=== PATIENT | female | born 1970 | race Caucasian/White ===

== ENCOUNTER 2023-11-03 01:35 | Outpatient (CLI) | payer OTHER, SELFPAY ==
--- NOTE | 2023-11-03 07:30 | DI.MAMMO_ITS ---
Exam(s) MAMMO SCREENING EXAM: MAMMO SCREENING CLINICAL HISTORY: screening,z12.39 TECHNIQUE: Mammograms were interpreted according to the usual protocol including computer analysis w ith CAD system, tomosynthesis and C-view imaging. COMPARISON: SCREENING AURELIO MAMMO W/CAD DIGI from 03/23/2013 DIAGNOSTIC RIGHT MAMMO DIGITAL from 04/01/2013 FINDINGS: The breasts are composed of scattered fibroglandular densities, Breast Density category B. No suspicious masses or suspicious microcalcifications are seen. No skin thickening or abnormal axillary lymph nodes are seen. There has been no significant change from prior exams. IMPRESSION: BI-RADS Category 1, Negative mammogram Yearly screening mammography is recommended. Breast Density - Category B, scattered fibroglandular densities. A negative radiographic report should not delay biopsy if a dominant or clinically suspicious mass is present. Up to ten percent of cancers are not identified on mammography. A negative report may reinforce clinical impression. Adenosis and dense breasts may obscure an underlying neoplasm. False positive reports average 6 to 10%. Patient will receive a letter notifying them of these results.
== END 2023-11-03 01:55 ==
LOC: DI 01:35
PROVIDERS: PCP Nurse Practitioner Family; Visit Provider Nurse Practitioner Family
DX: Z12.31 Encounter for screening mammogram for malignant neoplasm of breast (principal)
CPT/HCPCS: 77063; 77067

== ENCOUNTER 2023-11-04 09:40 | Outpatient (REF) | payer OTHER, SELFPAY ==
--- NOTE | 2023-11-04 09:15 | PAPFT_PTH ---
PATIENT: Dodie Vences LOC: [facility] U#:[id number] AGE/SX: 53/F ROOM: RE11/04/[address]: Sue Chadwick NP : 1970 BED: DIS: 11/04/2023 SPEC #: [id number] RECD: 11/04/23 13:16 STATUS: RICHY RESee #: [id number] ELLEN: 11/04/23 09:[address]: Sue Chadwick NP DEPT: COUNTS INCLUDE 234 BEDS AT THE [facility] Cytology RECD BY: Alyson Curry ENTERED: 11/04/23 13:17 SP TYPE: PAPFT OTHR DR: Elly Phillips APRN Tissues: 1 - CX/ENDOCX FOR PAP SMEARS Procedures: PAP THIN PREP/UVM Screening HPV DNA PROBE Comments: [id number] (HPV 16 & 18/45)
== END 2023-11-04 09:41 | disposition home or self-care (01) ==
LOC: LBN 09:40
PROVIDERS: PCP Nurse Practitioner Family; Visit Provider Nurse Practitioner Women's Health
DX: Z12.4 Encounter for screening for malignant neoplasm of cervix (principal)
CPT/HCPCS: 88142; 87624

== ENCOUNTER 2023-12-17 01:54 | Outpatient (CLI) | payer OTHER, SELFPAY ==
[2023-12-17 11:10] LABS: Calculated LDL 167 mg/dL (<100); Cholesterol 253 mg/dL (<200); HDL Cholesterol 78 mg/dL (40-60); Triglyceride 44 mg/dL (<150)
[2023-12-17 11:46] LABS: Hemoglobin A1C 5.9 % (<5.7)
== END 2023-12-17 01:55 | disposition home or self-care (01) ==
LOC: LBO 01:54
PROVIDERS: PCP Nurse Practitioner Family; Referring Provider Nurse Practitioner Family; Visit Provider Nurse Practitioner Family
DX: Z00.00 Encounter for general adult medical examination without abnormal findings (principal)
CPT/HCPCS: 36415; 80061; 83036

== ENCOUNTER 2024-06-10 08:49 | Day surgery (SDC) | payer OTHER, SELFPAY ==
[2024-06-10 09:23] VITALS: BP 181/96; PULSE 97; RESP 20; TEMP 36.7; O2SAT 97
--- NOTE | 2024-06-10 09:51 | W.ANESPRE ---
General Info Date of Service Date Performed: 06/10/24 Height: 5 ft 4 in Weight: 85.8 kg Body Mass Index (BMI): 32.4 Surgical Procedure: Operation Date: 06/10/24 09:50 Proposed Procedure Side Surgeon p Colonoscopy Shari Wright MD Meds Allergies and Home Medications Allergies Allergy/AdvReac Type Severity Reaction Status Date / Time No Known Allergies Allergy Verified 06/10/24 09:22 Home Medication ?Medication ?Instructions ?Recorded [id number] 18 mg-FA 400 1 tab PO DAILY 09/24/23 mcg-calcium 500 mg-vit K 50 mcg tablet (Women's Multivitamin) nystatin 100,000 unit/gram topical 1 applic topical BID #30 grams 11/04/23 cream bisacodyl 5 mg tablet,delayed 5 mg PO ONCE colonscopy bowel prep 06/02/24 release (Dulcolax (bisacodyl)) #4 tabs polyethylene glycol 3350 17 238 g PO ONCE colonoscopy prep 06/02/24 gram/dose oral powder #238 grams Current Visit Medications: Current Medications Generic Name Dose Route Start Last Admin Trade Name Freq PRN Reason Stop Dose Admin Ringer's Solution 1,000 mls @ 80 mls/hr 06/10/24 06:00 IV 06/10/24 23:59 INFUSION JACQUE IV Miscellaneous Supplies 1 each 06/10/24 06:00 Iv Access IV 06/10/24 23:59 DIRECTED JACQUE Sodium Chloride 0 ml 06/10/24 06:00 Normal Saline Flush 10 Ml Syr IV 06/10/24 23:59 PRN PRN Sodium Chloride 0 ml 06/10/24 06:00 Normal Saline 10 Ml Vial IJ 06/10/24 23:59 DIRECTED PRN Sterile Water 0 ml 06/10/24 06:00 Water,Injection,Sterile 10 Ml Vial IJ 06/10/24 23:59 DIRECTED PRN PFSH Active Problems Active Problems: Problem Status Onset Code Normal hysteroscopy Acute Z01.89 Flaky scalp Acute L21.0 Family history of malignant neoplasm of colon in father Acute Z80.0 Intertrigo Acute L30.4 IUD surveillance Acute Z30.431 Preventative health care Acute Z00.00 Screening for breast cancer Acute Z12.39 Medical History Medical History No pertinent past medical history Surgical History Surgical History No pertinent past surgical history Tobacco Smoking/Tobacco Use Status: Never Passive smoking exposure: No Alcohol Alcohol Intake: current Alcohol intake frequency: 0-2 drinks per day Substance Use Substance use: Never Substance use type: does not use Counseling provided: none Vital Signs and Lab Results Vital Signs Most Recent Vital Signs in EMR: Most Recent Vital Signs Temp Pulse Resp BP Pulse Ox 36.7 C 97 H 20 181/96 H 97 06/10/24 09:23 06/10/24 09:23 06/10/24 09:23 06/10/24 09:23 06/10/24 09:23 Lab Results Blood Type / Crossmatch: No Data to Display Complete Blood Count: No Data to Display Complete Metabolic Panel: No Data to Display Liver Function Panel: No Data to Display Coagulation Panel: No Data to Display Cardiac Panel: No Data to Display Arterial Blood Gas: No Data to Display Venous Blood Gas: No Data to Display Pancreas Panel: No Data to Display Thyroid Panel: No Data to Display Infectious Disease: No Data to Display Blood Cultures: No Data to Display Toxicology Panel: No Data to Display Panel: No Data to Display Anesthesia Assessment and Plan Anesthesia History Personal History: No History of General Anesthesia Family History: No Family History of Anesthesia Complications Exercise Tolerance Exercise Tolerance: Metabolic Equivalents>4 Pertinent Negatives Pertinent Negatives: No Symptoms of GERD, No Major Cardiovascular Symptoms or Complaints, No Major Pulmonary Symptoms or Complaints and No History of CVA/TIA Cardiac & Pulmonary Exam Cardiac Exam: Normal S1/S2 Heart Sounds Pulmonary Exam: Clear Bilateral Breath Sounds Implantable Cardiac Device Does patient have a Pacemaker or an ICD?: No Airway Exam Known Difficult Airway: No Mallampati Class: 3 Mouth Opening: Normal (> 3cm) Thyromental Distance: Greater than 3 cm Neck Range of Motion: Full ROM Neck Circumference: Normal Teeth Condition: Generalized Poor Dentition (none loose per patient. right front tooth chipped) ASA Classification ASA Score: ASA 2 Emergency Case?: No NPO Status NPO Status: NPO Clears >2 hours, Solids >8 hours Status Status: Negative HCG Anesthesia Plan Resuscitation Status: Full Code Anesthesia Technique: General Anesthesia Airway Planned: Natural Airway Monitors Used: Standard Monitors
[2024-06-10] MEDS: Lactated Ringers 1,000 ML 80 ML IV (10:17)
[2024-06-10 10:25] VITALS: BMI 32.4
--- NOTE | 2024-06-10 11:00 | W.COLOREPORT ---
Date of service: 06/10/24 Time of Service: 11:00 Colonoscopy Report Date of procedure: 06/10/24 Pre-op diagnosis general: Family history of colorectal cancer in a first-degree relative Post-op diagnosis procedure note: other (Circumferential dilated internal hemorrhoids and external anal polyp she is to go to the) Procedure: colonoscopy Surgeon: Shari Wright Anesthesia Type: General:No Airway Estimated blood loss (mL): 0 Complications: None Disposition: same day Indications: Patient with a family history of colon cancer in her father diagnosed in his 60s. Findings: normal colon, excellent prep and no polyps Retroflexion exam reveals circumferential dilated internal hemorrhoidal veins. Procedure Description: After the risks, benefits, and alternatives of the procedure were thoroughly explained, informed consent was obtained. The Patient is brought to the procedure room and time out is performed confirming patient identity, nature of procedure. Patient is connected to monitoring devices including O2 sat, EKG and given supplemental oxygen per anesthesia. After appropriate anesthetic is obtained, patient is placed in the left lateral decubitus position and digital rectal exam is performed. Findings include a 1.5 cm protruding anal polyp. The polyp is soft and supple, appears subtly verrucas but non cancerous . The colonoscope is inserted through the anus and guided under direct vision to the proximal colon as confirmed by presence of the appendiceal orifice and the ileocecal valve. The colonoscope is then slowly withdrawn , inspecting all aspects of the mucosa completely. Findings and any associated intervention, are noted above. The colonoscope was then completely withdrawn from the patient and the procedure terminated. The patient tolerated the procedure well and is transferred back to the Day surgery unit in stable condition.
[2024-06-10 11:04] VITALS: BP 142/88; PULSE 87; RESP 16; TEMP 36.1; O2SAT 94
--- NOTE | 2024-06-10 11:06 | W.PM.DSUDISC ---
Date of service: 06/10/24 Discharge Plan Disposition Patient Disposition: Home Discharge Details Attending Provider: Shari Wright Primary Care Provider: Elly Phillips Home Meds and New Rx's Prescriptions: No Action nystatin 100,000 unit/gram cream 1 applic topical BID Qty: 30 1RF Women's Multivitamin 18 mg-400 mcg- 500 mg-50 mcg tablet 1 tab PO DAILY polyethylene glycol 3350 17 gram/dose powder 238 g PO ONCE Qty: 238 0RF Rx Instructions: take per colonoscopy instructions bisacodyl [Dulcolax (bisacodyl)] 5 mg tablet,delayed release (DR/EC) 5 mg PO ONCE Qty: 4 0RF Rx Instructions: take per colonoscopy instructions Discharge Instructions Additional Instructions: You have no polys, but due to your family history of colon cancer, I do recommend that you have a repeat screening in 10 years You have dilated internal hemorrhoids. These do not need to be treated unless you develop a bleeding problem related to them. You have a protruding anal polyp which you may have noticed. This is non cancerous but it can be surgically removed if it bothers you.
[2024-06-10 11:37] VITALS: BP 138/88; PULSE 91; RESP 18; TEMP 36; O2SAT 99
--- NOTE | 2024-06-10 12:29 | W.ANESPOSTOP ---
Postoperative Evaluation Date, Time and Location Date Performed: 06/10/24 Time Performed: 11:37 Patient Location: Day Surgery Unit Vital Signs Most Recent Imported Vital Signs: Most Recent Vital Signs Temp Pulse Resp BP Pulse Ox 36 C L 91 H 18 138/88 99 06/10/24 11:37 06/10/24 11:37 06/10/24 11:37 06/10/24 11:37 06/10/24 11:37 Pain Score Most Recent Pain Score: Most Recent Pain Score Pain Level 0 06/10/24 11:37 Assessment Mental Status: Awake (Alert & Oriented to Patient Baseline) Airway and Respiratory Function: Patent airway with normal (patient baseline) respiratory exam Cardiovascular Function: Hemodynamically Stable Hydration Status: Adequately Hydrated Nausea & Vomiting: No Nausea or Vomiting Pain: Pt. Denies Any Pain Peripheral Nerve Block: Patient did not receive a nerve block
== END 2024-06-10 11:56 | disposition home or self-care (01) ==
PROVIDERS: PCP Nurse Practitioner Family; Visit Provider Surgery
PROC: 0DJD8ZZ Inspection of Lower Intestinal Tract, Via Natural or Artificial Opening Endoscopic (ICD-10-PCS; CPT 45378; principal; 2024-06-10 09:45)
DX: Z12.11 Encounter for screening for malignant neoplasm of colon (principal); Z80.0 Family history of malignant neoplasm of digestive organs; K62.0 Anal polyp; K64.8 Other hemorrhoids
CPT/HCPCS: 45378; J2003; J2704

== ENCOUNTER 2025-01-03 00:08 | Outpatient (CLI) | payer OTHER, SELFPAY ==
[2025-01-03 07:43] LABS: Hemoglobin A1C 5.8 % (<5.7)
[2025-01-03 12:51] LABS: Calculated LDL 178 mg/dL (<100); Cholesterol 252 mg/dL (<200); HDL Cholesterol 64 mg/dL (>or=50); Triglyceride 54 mg/dL (<150)
== END 2025-01-03 00:09 | disposition home or self-care (01) ==
LOC: LBO 00:08
PROVIDERS: PCP Nurse Practitioner Family; Visit Provider Nurse Practitioner Family
DX: Z00.00 Encounter for general adult medical examination without abnormal findings (principal); Z13.1 Encounter for screening for diabetes mellitus
CPT/HCPCS: 36415; 80061; 83036

== ENCOUNTER → 2025-02-20 00:33 | Outpatient (CLI) | payer OTHER, SELFPAY ==
--- NOTE | 2025-02-20 07:15 | DI.MAMMO_ITS ---
Exam(s) MAMMO SCREENING EXAM: MAMMO SCREENING CLINICAL HISTORY: screening,Z12.39 TECHNIQUE: Mammograms were interpreted according to the usual protocol including computer analysis with CAD system, tomosynthesis and C-view imaging. COMPARISON: 2023 FINDINGS: The breasts are composed of scattered fibroglandular densities, Breast Density category B. No suspicious masses or suspicious microcalcifications are seen. No skin thickening or abnormal axillary lymph nodes are seen. There has been no significant change from prior exams. IMPRESSION: BI-RADS Category 1, Negative mammogram Yearly screening mammography is recommended. Breast Density - Category B - There are scattered areas of fibroglandular density. Breast density Category C or D implies that the patient has dense breast tissue. Dense breast tissue can make it harder to find cancer on a mammogram. Dense breast tissue is also associated with an increased risk of breast cancer. This information about the result of the mammogram report was provided to the patient to raise their awareness. Use this report when you speak with the patient about their risks for breast cancer, which includes their family history. At that time, you may recommend additional screening tests (Ultrasound or MRI) as these tests may add significant information. A negative radiographic report should not delay biopsy if a dominant or clinically suspicious mass is present. Up to ten percent of cancers are not identified on mammography. A negative report may reinforce clinical impression. Adenosis and dense breasts may obscure an underlying neoplasm. False positive reports average 6 to 10%. Patient will receive a letter notifying them of these results.
== END ==
LOC: DI 00:33
PROVIDERS: PCP Nurse Practitioner Family; Visit Provider Nurse Practitioner Family
DX: Z12.31 Encounter for screening mammogram for malignant neoplasm of breast (principal); R92.323 Mammographic fibroglandular density, bilateral breasts
CPT/HCPCS: 77063; 77067